=== PATIENT | female | born 1935 | race Caucasian/White ===

== ENCOUNTER → 2017-12-19 | Outpatient (CLI) | payer OTHER ==
[~2017-12-19] MED LIST: HYDROCODONE-AP1 EAC6 PO; NAPROSYN500 MG PO; THYROID MED
== END ==
LOC: M.RAD 11:25
DX: M47.896 Other spondylosis, lumbar region (principal); M47.897 Other spondylosis, lumbosacral region; M47.894 Other spondylosis, thoracic region

== ENCOUNTER 2017-12-24 12:29 | Inpatient (IN) | payer OTHER ==
[~2017-12-24] VITALS: Ht 160 cm; Wt 54.4 kg
[2017-12-24 12:37] VITALS: BP 146/73
[2017-12-24 13:09] LABS: HEMATOCRIT 40.5 % (37.0-47.0); HEMOGLOBIN 12.8 gm/dL (12.0-15.0); MCH 18.5 pg (26.0-34.0); MCHC 31.8 g/dL (28.0-37.0); MCV 58.3 fL (80.0-100.0); MPV 8.2 fl. (7.2-11.1); NUCLEATED RBCS 0 /100WBC; RBC 6.94 mil/uL (4.20-5.00); RDW-CV 20.5 % (10.5-14.5)
[2017-12-24 13:12] LABS: PLATELET COUNT* 918 thou/uL (150-400); WBC 42.4 thou/uL (4.0-11.0)
[2017-12-24 13:13] LABS: ANION GAP 6 mmol/L (7-16); BUN 21 mg/dL (7-18); CALCIUM 9.1 mg/dL (8.5-10.1); CHLORIDE 98 mmol/L (98-107); CO2 30 mmol/L (21-32); GLUCOSE 87 mg/dL (70-99); POTASSIUM 4.2 mmol/L (3.5-5.1); SODIUM 134 mmol/L (136-145)
[2017-12-24 13:20] LABS: ALKALINE PHOSPHATASE 134 U/L (46-116); SGOT 17 U/L (15-37); SGPT 17 U/L (30-65); TOTAL BILIRUBIN 0.7 mg/dL (<0.1-1.0); TOTAL PROTEIN 6.7 g/dL (6.4-8.2); TROPONIN-I LEVEL <0.06 ng/mL (<0.06)
[2017-12-24 13:28] LABS: ABSOLUTE EOSINOPHILS 1.7 thou/uL (0.0-0.7); ABSOLUTE MONOCYTES 0.4 thou/uL (0.0-1.2); ABSOLUTE NEUTROPHILS 37.3 thou/uL (1.6-8.1); PLATELET ESTIMATE INCREASED
[2017-12-24 13:29] LABS: ANISOCYTOSIS 2+; HYPOCHROMASIA 3+; MICROCYTES 2+; OVALOCYTES 2+; POLYCHROMASIA 2+
[2017-12-24 14:08] VITALS: BP 139/65
--- NOTE | 2017-12-24 15:30 | EKG ---
[place] [address] ELECTROCARDIOGRAM REPORT Name: AKIN MARQUEZJIMMYGINNYHIRAL JANICE Room: [address] ADM IN .R.#: [id number] Admission: 12/24/17 Attend Phys: Laura Lepe Discharge: Date of : 31 Report #: [id number] THIS REPORT FOR: //name// [facility] ED Test Date: 2017-12-24 Test Time: 13:12:18 Pat Name: HIRAL NORTON Department: Room: [facility] Gender: F Video Operator: MIGDALIA Iglesias : 1935 Requested By: Bradly Wright Order Number: [id number] MD: Lars Polanco Measurements Intervals [place] Rate: 90 P: 50 HI: 139 QRS: 11 QRSD: 83 T: 61 QT: 348 QTc: 426 Interpretive Statements Sinus rhythm Anterior infarct, old No previous ECG available for comparison Electronically Signed On 12-24-2017 15:29:54 CDT by Lars Polanco [email or web address] <ELECTRONICALLY SIGNED> By: Lars Polanco MD, [facility] 12/24/17 1529 11 11 Lars Polanco MD, FACC /EPI
--- NOTE | 2017-12-24 16:26 | NUR ---
PATIENT TO ROOM 307 @ 1430 THIS AFTERNOON. A/O, PAIN MANAGED ADEQUATELY WITH IV PAIN MEDICATION. UP WITH ASSIST, C/O PAIN TO LOWER BACK. LUNGS CLEAR, NO COUGH, VSS, HYPERTENSIVE, DENIES HTN DIAGNOSIS OR THERAPY AT THIS TIME. [place] DIET FAIRLY WELL, DISCOMFORT LIMITS APPETITE, LBM 12/23/17. CONTINENT OF BOWEL AND BLADDER. 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 CALL LIGHT IN REACH, CONT POC.
[2017-12-24 23:22] VITALS: BP 179/71
--- NOTE | 2017-12-25 00:47 | NUR ---
PT CARE TRANSFERRED TO [facility]. CALL LITE IN EASY REACH, BED ALARM ON FOR SAFETY.
--- NOTE | 2017-12-25 05:58 | NUR ---
ASSESSMENT COMPLETE. PT SLEPT MOST OF THE NIGHT, UP A COUPLE TIMES TO THE BATHROOM. PT IS ALERT AND ORIENTED X4. PRN PAIN MEDICATION GIVEN A COUPLE TIMES DURING THE NIGHT WITH RELIEF REPORTED. PT IS ON ROOM AIR WITH ADEQUATE SATS. PT DENIES N/V. PT HAS IV FLUIDS INFUSING. PT IS UP ONE ASSIST WITH CANE. PT IS FALL RISK, BED ALARM ON. SEE ASSESSMENT AND VITALS FOR OTHER DETAILS. CALL LIGHT WITHIN REACH, WILL CONTINUE PLAN OF CARE
[2017-12-25 07:40] VITALS: BP 157/65
--- NOTE | 2017-12-25 14:07 | NUR ---
Nutrition: Pt seen for nursing risk 2 points. PMHx: HTN, sciatica, polycythemia. Albumin 4. Wt: 120#. Pt stated she has lost 12# in past week d/t not eating much 2/2 back pain. Per [facility], usual wt is 120-130#. She stated she is drinking Boosts. RD will order Boost+ t.i.d. Pt is encouraged to eat meals as well; just waiting for her pain to subside. Mild risk at this time. Pt stated she may be discharging soon.
[2017-12-25 14:10] VITALS: BP 157/65
--- NOTE | 2017-12-25 14:36 | NUR ---
SW met with pt to complete initial assessment, introduce self, and SW role. Pt dtr Yulissa at bedside. Pt was alert, oriented, quiet. Pt lives at home with her ; pt is his caregiver. Pt has DME of his own, pt has a cane. SW was informed later in the day that pt/family requesting transfer to [place] for kyphoplasty as pt has family at [place]. SW called [facility] transfer team and presented referral for transfer and faxed needed information/records. SW to continue to follow.
[2017-12-25 16:00] VITALS: BP 170/74
--- NOTE | 2017-12-25 18:52 | NUR ---
PATIENT A&OX4, ROOM AIR, IV RIGHT FOREARM FLUIDS RUNNING. UP WITH ASSISTX1 WITH CANE, FROM HOME. C/O BACK PAIN, PARTIAL RELIEF WITH MEDICATION. PATIENT HAD MRI TODAY RESULTS SHOW AMENABILITY TO KYPHOPLASTY PROCEDURE, IS BEING TRANSFERED TO [place]. YONG FROM [facility] HAS STATED PATIENT HAS BEEN ACCEPTED. DR. RADER WAS IN CONTACT WITH ACCEPTING PHYSICIAN, DR. DEEPIKA FELIZ. WILL BE MEDICAL-SURGICAL STATUS, ROOM NUMBER NOT YET KNOW. WILL CALL BACK WITH ROOM. TRANSPORTATION WILL THEN BE CONTACTED. MRI DISCK TO BE SENT WITH PATIENT. CALL BACK WITH ROOM #422 AT [place]. SPOKE WITH AUGUST FOR REPORT. FAXED INFORMATION FOR TRANSPORTATION, USING [facility] DISPATCH. SPOKE WITH PATIENT AND FAMILY, AGREE WITH PLAN OF CARE. QUESTIONS ANSWERED, NO FURTHER QUESTIONS, VERBALIZES UNDERSTANDING. APPROPRAITE AND COOPORATIVE WITH CARE.
== END 2017-12-25 20:16 | disposition short-term general hospital (02) | DRG 543 ==
LOC: M.ERS 12:29 → M.3W 13:55 → M.TBA-ER 13:55 → M.3W 14:19
PROVIDERS: Emergency Medicine Emergency Medical Services; ADMIT Internal Medicine
DX: M48.56XA Collapsed vertebra, not elsewhere classified, lumbar region, initial encounter for fracture (principal); E87.1 Hypo-osmolality and hyponatremia; D75.1 Secondary polycythemia; M54.30 Sciatica, unspecified side; I10 Essential (primary) hypertension; Z90.710 Acquired absence of both cervix and uterus; Z88.5 Allergy status to narcotic agent; Z88.0 Allergy status to penicillin; Z88.2 Allergy status to sulfonamides